=== PATIENT | male | born 1970 | race Hispanic/Latino ===

== ENCOUNTER 2019-03-26 17:08 | Emergency (ER) | payer OTHER ==
[2019-03-26 17:32] LABS: APPEARANCE,URINE Cloudy (CLEAR); BILIRUBIN,URINE Negative (NEGATIVE); COLOR,URINE Orange (YELLOW); GLUCOSE, URINE (UA) Negative (NEGATIVE); KETONES,URINE Negative (NEGATIVE); LEUKOCYTE ESTERASE ,URINE Trace (NEGATIVE); NITRATE,URINE Negative (NEGATIVE); OCCULT BLOOD,URINE Large (NEGATIVE); PROTEIN,URINE POS 1+ mg/dL (NEGATIVE)
[2019-03-26 17:45] LABS: AMORPHOUS SEDIMENT,UR Few /LPF (None Seen); BACTERIA,URINE Few /HPF (None Seen); RBC,URINE >100 /HPF (0-1); SQUAMOUS EPITHELIAL CELL,UR None Seen /HPF (0-2)
[2019-03-26] MEDS ORDERED: LIDOCAINE HCL-MPF 1% 2ML VIAL ONE (18:21)
[2019-03-26] MEDS ORDERED: KETOROLAC TROMETHAMINE 60 MG/2 ML VIAL ONE (18:22)
[2019-03-26] MEDS ORDERED: CEFTRIAXONE SODIUM 1 GM ONE (18:22)
== END 2019-03-26 18:44 | disposition home or self-care (01) ==
LOC: EDH 17:08
DX: N39.0 Urinary tract infection, site not specified (principal)
CPT/HCPCS: 81001; 87088; 96372 ×2; 99284; J0696; J1885; J3490

== ENCOUNTER 2023-10-23 03:33 | Emergency (ER) | payer SELFPAY ==
[~2023-10-23] VITALS: Ht 167.6 cm; Wt 92.5 kg
[2023-10-23 05:00] LABS: BASOPHILS # (AUTO) 0.07 K/uL (0.00-0.20); BASOPHILS % (AUTO) 1.2 % (0.0-5.0); EOSINOPHILS # (AUTO) 0.27 K/uL (0.00-0.70); EOSINOPHILS % (AUTO) 4.5 % (0.0-8.0); HEMATOCRIT 38.5 % (42-54); IMMATURE GRANULOCYTE ABSOLUTE 0.03 K/uL (0-1); LYMPHOCYTES # (AUTO) 1.1 K/uL (1.0-4.8); LYMPHOCYTES % (AUTO) 17.6 % (21.0-51.0); MEAN CORPUSCULAR HEMOGLOBIN 30.7 pg (27.0-33.0); MEAN CORPUSCULAR HGB CONC 36.1 g/dL (32.0-36.0); MONOCYTES # (AUTO) 0.3 K/uL (0.1-1.0); MONOCYTES % (AUTO) 5.4 % (3.0-13.0); NEUTROPHILS # (AUTO) 4.2 K/uL (1.8-7.7); NEUTROPHILS % (AUTO) 70.8 % (40.0-77.0); PLATELET COUNT (AUTO) 189 K/uL (130-400); RED BLOOD CELL COUNT(AUTO) 4.53 MIL/uL (4.50-6.20); RED CELL DISTRIBUTION WIDTH 12.6 % (11.0-15.5)
[2023-10-23 05:11] LABS: INR 1.27 (0.85-1.15); PROTHROMBIN TIME 13.5 SEC (9.6-11.6)
[2023-10-23 05:13] LABS: PARTIAL THROMBOPLASTIN TIME 24.9 SEC (26.3-35.5)
[2023-10-23 05:14] LABS: CREATININE 1.2 mg/dL (0.5-1.3); POTASSIUM 3.8 mmol/L (3.5-5.1)
[2023-10-23 05:57] LABS: B-TYPE NATRIURETIC PEPTIDE 47 pg/mL (0-100)
[2023-10-23] MEDS: MORPHINE 2 MG SYG IVP ONE (06:30)
[2023-10-23] MEDS ORDERED: ACET-2079 PO (07:02)
[2023-10-23 07:59] VITALS: BP 159/74; PULSE 59; RESP 17; O2SAT 97
== END 2023-10-23 08:13 | disposition home or self-care (01) ==
LOC: EDH 03:33
DX: F41.1 Generalized anxiety disorder (principal); F43.0 Acute stress reaction; C18.9 Malignant neoplasm of colon, unspecified; M25.511 Pain in right shoulder; M25.512 Pain in left shoulder; R20.0 Anesthesia of skin; Z85.038 Personal history of other malignant neoplasm of large intestine; Z85.46 Personal history of malignant neoplasm of prostate; Z93.3 Colostomy status; Z98.890 Other specified postprocedural states
CPT/HCPCS: 99285; 96374; 70450; 71045; 82550; 83721; 84484; 80048; 83880; 85025; 85610; 85730; 36415; 93005; J2270